=== PATIENT | female | born 1975 | race Hispanic/Latino ===

== ENCOUNTER 2020-11-20 14:18 | Emergency (ER) | payer OTHER ==
[~2020-11-20 14:18] MED LIST: ATOR40TA69 PO; DOXY100T2 PO; IBUP-2070 PO; LINA5TAB PO; LOSA50TA64 PO; MELO7.5O PO; METF-444 PO; SERT-439 PO; TRAM50TA4 PO
[2020-11-20] MEDS ORDERED: ACETAMINOPHEN EXTRA STRENGTH 500 MG TABLET ONE (14:34)
[2020-11-20] MEDS ORDERED: METOCLOPRAMIDE 10 MG/2 ML VIAL ONE (14:34)
[2020-11-20] MEDS ORDERED: DiphenhydrAMINE HCL 50 MG/ML VIAL ONE (14:34)
[2020-11-20] MEDS ORDERED: SODIUM CHLORIDE 0.9% 1000ML 1,000 ML IV ONE (14:35)
[2020-11-20 14:40] LABS: BASOPHILS % (AUTO) 0.3 % (0.0-5.0); EOSINOPHILS % (AUTO) 2.9 % (0.0-8.0); HEMATOCRIT 40.1 % (36-48); LYMPHOCYTES % (AUTO) 17.4 % (21.0-51.0); MEAN CORPUSCULAR HEMOGLOBIN 25.9 pg (27.0-33.0); MEAN CORPUSCULAR HGB CONC 32.2 g/dL (32.0-36.0); MEAN CORPUSCULAR VOLUME 80.5 fL (79-99); PLATELET COUNT (AUTO) 282 K/uL (130-400); RED BLOOD CELL COUNT(AUTO) 4.98 MIL/uL (4.00-5.50); RED CELL DISTRIBUTION WIDTH 14.9 % (11.0-15.5); WHITE BLOOD COUNT (AUTO) 9.4 K/uL (4.8-10.8)
[2020-11-20 14:55] LABS: CREATININE 0.6 mg/dL (0.5-1.5); POTASSIUM 3.8 mmol/L (3.5-5.1)
[2020-11-20 15:00] LABS: ALBUMIN 3.4 g/dL (3.5-5.0); BILIRUBIN,TOTAL 0.4 mg/dL (0.2-1.0)
[2020-11-20 15:56] LABS: APPEARANCE,URINE Clear (CLEAR); BILIRUBIN,URINE Negative (NEGATIVE); COLOR,URINE Yellow (YELLOW); GLUCOSE, URINE (UA) 500 mg/dL (NEGATIVE); KETONES,URINE 15 mg/dL (NEGATIVE); LEUKOCYTE ESTERASE ,URINE Negative (NEGATIVE); NITRATE,URINE Negative (NEGATIVE); OCCULT BLOOD,URINE Negative (NEGATIVE); PROTEIN,URINE Negative (NEGATIVE); UROBILINOGEN,URINE 0.2 mg/dL (0.2-1.0)
[2020-11-20 16:00] LABS: HCG,QUAL RESULT NEGATIVE (NEGATIVE)
[2020-11-20 16:03] LABS: AMPHET/METH SCREEN,URINE NEGATIVE (NEGATIVE); BACTERIA,URINE Rare /HPF (None Seen); BARBITURATE SCREEN, URINE NEGATIVE (NEGATIVE); BENZODIAZEPINES SCREEN,URINE NEGATIVE (NEGATIVE); CANNABINOID SCREEN,URINE NEGATIVE (NEGATIVE); COCAINE SCREEN,URINE NEGATIVE (NEGATIVE); OPIATE SCREEN,URINE NEGATIVE (NEGATIVE); PHENCYCLIDINE SCREEN,URINE NEGATIVE (NEGATIVE); RBC,URINE 0-1 /HPF (0-1); SQUAMOUS EPITHELIAL CELL,UR Few /HPF (0-2); WBC,URINE 0-1 /HPF (0-1)
== END 2020-11-20 16:23 | disposition home or self-care (01) ==
LOC: EDH 14:18
DX: R51.9 Headache, unspecified (principal); E11.9 Type 2 diabetes mellitus without complications; I10 Essential (primary) hypertension
CPT/HCPCS: 36415; 80053; 80305; 81001; 81025; 85025; 96361; 96374; 96375; 99284; J1200; J2765; J7030

== ENCOUNTER 2021-04-10 00:48 | Emergency (ER) | payer OTHER ==
[~2021-04-10] VITALS: Ht 152.4 cm; Wt 90.3 kg
[2021-04-10 01:13] VITALS: BP 160/83
[2021-04-10] MEDS ORDERED: HALOPERIDOL INJ 5 MG/ML VIAL IM SCH (01:30)
[2021-04-10] MEDS ORDERED: DiphenhydrAMINE HCL 50 MG/ML VIAL IM ONE (01:30)
[2021-04-10 02:26] VITALS: BP 147/78
== END 2021-04-10 02:57 | disposition home or self-care (01) ==
LOC: EDH 00:48
DX: R51.9 Headache, unspecified (principal); E11.9 Type 2 diabetes mellitus without complications; I10 Essential (primary) hypertension; Z79.1 Long term (current) use of non-steroidal anti-inflammatories (NSAID); Z79.84 Long term (current) use of oral hypoglycemic drugs; Z79.899 Other long term (current) drug therapy
CPT/HCPCS: 70450; 96372 ×2; 99284; J1200; J1630

== ENCOUNTER 2021-09-20 23:11 | Emergency (ER) | payer OTHER ==
[~2021-09-20] VITALS: Ht 152.4 cm; Wt 88.5 kg
[2021-09-20 23:26] VITALS: BP 138/70
[2021-09-20 23:52] LABS: BASOPHILS % (AUTO) 0.5 % (0.0-5.0); EOSINOPHILS % (AUTO) 2.7 % (0.0-8.0); HEMATOCRIT 41.1 % (36-48); LYMPHOCYTES % (AUTO) 24.6 % (21.0-51.0); MEAN CORPUSCULAR HEMOGLOBIN 25.7 pg (27.0-33.0); MEAN CORPUSCULAR HGB CONC 30.7 g/dL (32.0-36.0); MEAN CORPUSCULAR VOLUME 83.9 fL (79-99); MONOCYTES % (AUTO) 6.5 % (3.0-13.0); NEUTROPHILS % (AUTO) 65.3 % (40.0-77.0); PLATELET COUNT (AUTO) 279 K/uL (130-400); RED CELL DISTRIBUTION WIDTH 14.7 % (11.0-15.5); WHITE BLOOD COUNT (AUTO) 8.5 K/uL (4.8-10.8)
[2021-09-21] LABS: CREATININE 0.6 mg/dL (0.5-1.5); POTASSIUM 3.9 mmol/L (3.5-5.1)
[2021-09-21 01:16] LABS: PLATELET MORPHOLOGY LARGE PLTS PRESENT
== END 2021-09-21 00:40 | disposition home or self-care (01) ==
LOC: EDH 23:11
DX: R20.2 Paresthesia of skin (principal); M79.602 Pain in left arm; E10.9 Type 1 diabetes mellitus without complications
CPT/HCPCS: 36415; 80048; 84484; 85025; 93005

== ENCOUNTER 2023-02-15 15:47 | Emergency (ER) | payer BC, OTHER ==
[~2023-02-15] VITALS: Ht 160 cm; Wt 65.8 kg
[2023-02-15 16:17] LABS: BASOPHILS # (AUTO) 0.01 K/uL (0.00-0.20); BASOPHILS % (AUTO) 0.1 % (0.0-5.0); EOSINOPHILS # (AUTO) 0.02 K/uL (0.00-0.70); EOSINOPHILS % (AUTO) 0.2 % (0.0-8.0); HEMATOCRIT 42.6 % (36-48); IMMATURE GRANULOCYTE ABSOLUTE 0.04 K/uL (0-1); LYMPHOCYTES # (AUTO) 0.6 K/uL (1.0-4.8); LYMPHOCYTES % (AUTO) 5.5 % (21.0-51.0); MEAN CORPUSCULAR HEMOGLOBIN 25.5 pg (27.0-33.0); MEAN CORPUSCULAR HGB CONC 31.7 g/dL (32.0-36.0); MEAN CORPUSCULAR VOLUME 80.4 fL (79-99); MONOCYTES # (AUTO) 0.3 K/uL (0.1-1.0); MONOCYTES % (AUTO) 3.1 % (3.0-13.0); NEUTROPHILS % (AUTO) 90.7 % (40.0-77.0); PLATELET COUNT (AUTO) 289 K/uL (130-400); RED CELL DISTRIBUTION WIDTH 14.4 % (11.0-15.5); WHITE BLOOD COUNT (AUTO) 9.9 K/uL (4.8-10.8)
[2023-02-15 16:23] LABS: APPEARANCE,URINE CLOUDY (CLEAR); BILIRUBIN,URINE NEGATIVE (NEGATIVE); COLOR,URINE YELLOW (YELLOW); GLUCOSE, URINE (UA) >=1000 mg/dL (NEGATIVE); KETONES,URINE 10 mg/dL (NEGATIVE); LEUKOCYTE ESTERASE ,URINE 25 Leu/uL (NEGATIVE); NITRATE,URINE NEGATIVE (NEGATIVE); OCCULT BLOOD,URINE LARGE (NEGATIVE); PROTEIN,URINE 30 mg/dL (NEGATIVE); UROBILINOGEN,URINE 0.2 mg/dL (0.2-1.0)
[2023-02-15 16:44] LABS: ADD UA MICROSCOPIC YES
[2023-02-15 16:46] LABS: BACTERIA,URINE FEW /HPF (None Seen); MUCUS,URINE FEW LPF (None Seen); RBC,URINE 26-50 /HPF (0-1); SQUAMOUS EPITHELIAL CELL,UR MOD /HPF (0-2); UNCLASSIFIED CRYSTAL 1 /HPF (None Seen)
[2023-02-15 16:50] LABS: ALBUMIN 3.7 g/dL (3.5-5.0); BILIRUBIN,TOTAL 0.6 mg/dL (0.2-1.0); CREATININE 0.6 mg/dL (0.5-1.5); POTASSIUM 4.2 mmol/L (3.5-5.1); TOTAL PROTEIN, SERUM 7.6 g/dL (6.0-8.3)
[2023-02-15 16:52] LABS: HCG,QUALITATIVE URINE NEGATIVE (NEGATIVE)
[2023-02-15] MEDS ORDERED: 0.9%NACL 1000ML 1,000 ML IV ONE (17:00)
[2023-02-15] MEDS ORDERED: MORPHINE 4 MG SYG IM ONE (17:00)
[2023-02-15] MEDS ORDERED: ONDANSETRON 4MG INJ IVP ONE (17:00)
[2023-02-15] MEDS ORDERED: FAMO20TA8 PO (20:12)
[2023-02-15] MEDS ORDERED: CEPH500B PO (20:12)
[2023-02-15 20:30] VITALS: BP 117/62; PULSE 87; RESP 18; O2SAT 96
== END 2023-02-15 20:34 | disposition home or self-care (01) ==
LOC: EDH 15:47
DX: N39.0 Urinary tract infection, site not specified (principal); K29.70 Gastritis, unspecified, without bleeding; I10 Essential (primary) hypertension; Z79.84 Long term (current) use of oral hypoglycemic drugs; Z79.899 Other long term (current) drug therapy
CPT/HCPCS: 99284; 96374; 76705; 96361; 80053; 83690; 85025; 87088; 82010; 81001; 81025; 36415; 96372; J7030; J2405; J2270

== ENCOUNTER 2024-07-15 16:21 | Emergency (ER) | payer BC ==
[~2024-07-15] VITALS: Ht 149.9 cm; Wt 72.6 kg
[~2024-07-15 16:21] MED LIST changes: +CEPH500B PO; +FAMO20TA8 PO
[2024-07-15 17:06] LABS: HEMATOCRIT 39.7 % (36-48); MEAN CORPUSCULAR HEMOGLOBIN 26.7 pg (27.0-33.0); MEAN CORPUSCULAR HGB CONC 32.7 g/dL (32.0-36.0); MEAN CORPUSCULAR VOLUME 81.5 fL (79-99); RED BLOOD CELL COUNT(AUTO) 4.87 MIL/uL (4.00-5.50); RED CELL DISTRIBUTION WIDTH 14.4 % (11.0-15.5)
[2024-07-15 17:16] LABS: APPEARANCE,URINE CLEAR (CLEAR); BILIRUBIN,URINE NEGATIVE (NEGATIVE); COLOR,URINE LIGHT-YELLOW (YELLOW); GLUCOSE, URINE (UA) 300 mg/dL (NEGATIVE); KETONES,URINE NEGATIVE (NEGATIVE); LEUKOCYTE ESTERASE ,URINE 25 Leu/uL (NEGATIVE); NITRATE,URINE NEGATIVE (NEGATIVE); OCCULT BLOOD,URINE NEGATIVE (NEGATIVE); PH,URINE 5.5 (5.0-8.0); PROTEIN,URINE NEGATIVE (NEGATIVE); UROBILINOGEN,URINE 0.2 mg/dL (0.2-1.0)
[2024-07-15 17:25] LABS: ADD UA MICROSCOPIC YES
[2024-07-15 17:26] LABS: MUCUS,URINE RARE LPF (None Seen); RBC,URINE 0-1 /HPF (0-1); SQUAMOUS EPITHELIAL CELL,UR FEW /HPF (0-2)
[2024-07-15 18:35] LABS: CREATININE 0.5 mg/dL (0.5-1.0); POTASSIUM 3.7 mmol/L (3.5-5.1)
[2024-07-15] MEDS: ketOROlac 15MG/ML VIAL (15MG/ML) IV ONE (18:35)
--- NOTE | 2024-07-15 18:49 | ERN ---
General Chief Complaint: Abdominal Pain Stated Complaint: ABDOMINAL PAIN Time Seen by MD: 16:56 Time Seen by Midlevel: 16:56 Source: patient History of Present Illness Initial Comments Patient is a 49-year-old female presenting to the emergency department with worsening right lower quadrant abdominal pain that has been ongoing for the last five days. Denies any fever, chills, dysuria, hematuria, or any other symptoms at this time. She does report having a history of ovarian cysts but has never followed up with an OBGYN. Denies any other concerns at this time. Allergies: Coded Allergies: No Known Drug Allergies (Verified Allergy, Unknown, 03/12/17) Home Meds Active Scripts Famotidine (Famotidine) 20 Mg Tablet, 20 MG PO BID, #14 TAB Prov:JARAD CARTWRIGHT V SHOTGUN SHELL LOADING MACHINE OPERATOR 02/15/23 Cephalexin Monohydrate (Keflex) 500 Mg Cap, 500 MG PO QID for 7 Days, #28 CAP Prov:JARAD CARTWRIGHT V [employer] SHELL LOADING MACHINE OPERATOR 02/15/23 Doxycycline Hyclate (Doxycycline Hyclate) 100 Mg Tablet, 100 MG PO BID, #14 TAB Prov:REYNA POWELL MD 03/14/17 Reported Medications Sertraline HCl (Sertraline HCl) 50 Mg Tablet, 50 MG PO DAILY, TAB 03/12/17 Meloxicam (Meloxicam) 7.5 Mg/5 Ml Oral.susp, 7.5 MG PO DAILY, ML 03/12/17 Losartan Potassium (Losartan Potassium) 50 Mg Tablet, 50 MG PO DAILY, TAB 03/12/17 Atorvastatin Calcium (LIPITOR) 40 Mg Tablet, 40 MG PO DAILY, TAB 03/12/17 Linagliptin (Tradjenta) 5 Mg Tablet, 5 MG PO DAILY, TAB 03/12/17 Ibuprofen (Ibuprofen) 600 Mg Tablet, 600 MG PO Q6H PRN for PAIN, TAB 03/12/17 Tramadol Hcl (Tramadol HCl) 50 Mg Tablet, 50 MG PO [id number] PRN for PAIN LEVEL 6 TO 10, TAB 03/12/17 Metformin HCl (Metformin HCl) 500 Mg Tablet, 500 MG PO BID, TAB 03/12/17 Past Medical History Past Medical History: No Pertinent History, Hypothyroid, Ovarian Cyst Past Surgical History: Surgical History Other: THYROID SX Family History Family History: Negative Social History Social History: Negative, Other ROS Dictation CONSTITUTIONAL: Negative except for HPI HEAD/FACE: Negative except for HPI EENT: Negative except for HPI RESPIRATORY: Negative except for HPI GASTROINTESTINAL/ABDOMINAL: Negative except for HPI GENITOURINARY: Negative except for HPI MUSCULOSKELETAL: Negative except for HPI INTEGUMENTARY: Negative except for HPI NEUROLOGICAL/PSYCH: Negative except for HPI HEMATOLOGIC/LYMPHATIC: Negative except for HPI All Systems Negative, Except as noted above. 13 point review of systems assessed and all negative except for above. Physical Exam Physical Exam Dictation Vital Signs reviewed General Appearance: Alert, oriented x 3, no acute distress, well developed, nourished. Head and Face: non-traumatic. Eyes: PERRL, pink conjunctivas, eyelid no trauma, anterior chamber with arcus senilis. Ears: Pinnas intact and no signs of trauma or erythema ear canals clear and no discharge TM no erythema Nose: No discharge, no bleeding. Oropharynx: Mouth normal, tongue pink, pharynx clear,no erythema, tonsils no exudates, no abscesses noted, mucous memb shine moist Neck: Supple, non-tender, no thyromegaly, no masses, no JVD, no bruits Breast:Deferred Chest:No tenderness, no crepitus, no paradoxical movement, no retractions Lungs:Clear, well-ventilated, symmetric, no rales, no wheezing, no rhonchi, no s tridor, good breath sounds bilaterally Heart: Regular rate, regular rhythm, no murmur, no gallops Vascular: no peripheral edema, Abdomen: Soft, positive bowel sounds, nondistended, no guarding, Right lower quadrant abdominal tenderness, no rebound, no masses no hepatomegaly, no splenomegaly, no Presley's sign, no hernias. Rectal: Deferred Genital: Deferred Neurological: Normal speech, motor function intact, sensory function intact Musculoskeletal: Neck nontender, full range of motion, back nontender, full range of motion, Extremities: nontender, full range of motion Skin: Color pink, dry, no turgor, no rash, no lacerations, no abrasions, no contusions. Lymphatic: Deferred Results Laboratory and Microbiology Lab and Micro Result Laboratory Tests Test 07/15/24 16:46 07/15/24 16:56 Urine Color LIGHT-YELLOW (YELLOW) Urine Appearance CLEAR (CLEAR) Urine pH 5.5 (5.0-8.0) Urine Specific [place] 1.023 (1.001-1.031) Urine Protein NEGATIVE mg/dL (NEGATIVE) Urine Glucose (UA) 300 mg/dL (NEGATIVE) H Urine Ketones NEGATIVE mg/dL (NEGATIVE) Urine Occult Blood NEGATIVE (NEGATIVE) Urine Nitrate NEGATIVE (NEGATIVE) Urine Bilirubin NEGATIVE mg/dL (NEGATIVE) Urine Urobilinogen 0.2 mg/dL (0.2-1.0) Urine Leukocyte Esterase 25 [place]/uL (NEGATIVE) H Urine RBC 0-1 /HPF (0-1) Urine WBC 2-5 /HPF (0-1) H Urine Squamous Epithelial Cells FEW /HPF (0-2) Urine Bacteria None /HPF (None Seen) White Blood Count 10.0 K/uL (4.8-10.8) Red Blood Count 4.87 MIL/uL (4.00-5.50) Hemoglobin 13.0 g/dL (12.0-16.0) Hematocrit 39.7 % (36-48) Mean Corpuscular Volume 81.5 fL (79-99) Mean Corpuscular Hemoglobin 26.7 pg (27.0-33.0) L Mean Corpuscular Hemoglobin Concent 32.7 g/dL (32.0-36.0) Red Cell Distribution Width 14.4 % (11.0-15.5) Platelet Count 269 K/uL (130-400) Mean Platelet Volume 12.1 fL (7.5-10.5) H Nucleated Red Blood Cells 0.0 % (0.0-0.19) Sodium Level 140 mmol/L (136-145) Potassium Level 3.7 mmol/L (3.5-5.1) Chloride Level 104 mmol/L (101-111) Carbon Dioxide Level 27 mmol/L (21-32) Blood Urea Nitrogen 18 mg/dL (7-18) Creatinine 0.5 mg/dL (0.5-1.0) Glomerular Filtration Rate Calc 115 mL/min (>90) Random Glucose 137 mg/dL (70-105) H Total Calcium 9.0 mg/dL (8.5-10.1) REASON: RLQ abd pain r/o appendicitis ORDERING PHYSICIAN: XIMENA MARTELL PROCEDURE: ABD PEL W - CT ABDOMEN/PELVIS W/CONTRAST CT ABDOMEN/PELVIS W/CONTRAST CLINICAL HISTORY: RLQ abd pain appendicitis COMPARISON: 01/10/2024 TECHNIQUE: Sequential axial images of abdomen and pelvis with 100 mL of Omnipaque 350 IV contrast with sagittal and coronal reconstructions. CT was performed with one or more of the following dose reduction techniques: automated exposure control, adjustment of the mA and/or kV according to patient size, or use of iterative reconstruction technique. FINDINGS: Lung bases are clear. The liver spleen gallbladder pancreas and adrenal glands kidneys and bladder are unremarkable. There is no identified bowel obstruction. There is no bulky abdominal or retroperitoneal lymphadenopathy. The appendix is normal. Note is made of a large right ovarian cyst demonstrates interval increase since the prior examination with a maximum dimension of 8.6 cm. There is no free air or free fluid. The bony structures are unremarkable. IMPRESSION: Normal appendix. 8.6 cm maximum dimension right ovarian cyst recommended ultrasound correlation. REASON: rlq pain, r/o ovarian torsion ORDERING PHYSICIAN: XIMENA MARTELL PROCEDURE: PELVCOMP - US PELVIC NON-OB COMP US PELVIC NON-OB COMP HISTORY: rlq pain, ovarian torsion COMPARISON: 01/10/2024 FINDINGS: The uterus measures 10.8 cm length and there is 1.2 cm thick endometrium. The right ovary is unremarkable in size and echogenicity and vascularity. The left ovary is not identified. Note is made of a 10 x 5.1 x 7 cm right paraovarian cyst that appears simple with no internal echoes or septations. IMPRESSION: Interval increase in size of previously identified right paraovarian cyst to maximum dimension of 10 cm with no identified right ovarian torsion. The left ovary is not identified. Labs Reviewed?: Yes MDM MDM: Patient is a 49-year-old female presenting to the emergency department with worsening right lower quadrant abdominal pain that has been ongoing for the last five days. Denies any fever, chills, dysuria, hematuria, or any other symptoms at this time. She does report having a history of ovarian cysts but has never followed up with an OBGYN. Denies any other concerns at this time. CBC showed no leukocytosis, no anemia, chemistry showed no electrolyte imbalance, normal renal function, urinalysis slight leukocyte esterase. No nitrites. CT abdomen showed normal appendix, right ovarian cyst, ultrasound revealed the right ovarian cyst with no torsion. Patient instructed to follow up with OBGYN as soon as possible. Patient currently in no acute discomfort. Nontoxic appearance. Will be discharged to follow up with PCP. An OBGYN Differential diagnosis: Ovarian cyst, appendicitis, electrolyte imbalance, constipation, UTI There are no social concerns with this patient. Prescription drug management Medical management and examination interpretation discussions were had by me with other qualified healthcare professionals as indicated for the patient's care. ED Course Orders Procedure Category Date Status Time Urinalysis Profile LAB 07/15/24 Complete 16:45 Cbc Without LAB 07/15/24 Complete Differential 16:45 Basic Metabolic Panel LAB 07/15/24 Complete 18:00 Ct Abdomen/Pelvis CT 07/15/24 Resulted W/Contrast 18:00 Ketorolac PHA 07/15/24 Complete Tromethamine 15mg/Ml 18:30 Us Pelvic Non-Ob Comp US 07/15/24 Resulted 18:00 Iohexol (Omnipaque) PHA 07/15/24 Complete 19:23 Current Medications Medications (Trade) Dose Ordered Sig/Meagan Route PRN Reason Start Time Stop Time Status Last Admin Dose Admin Iohexol (Omnipaque) 35,000 mg STK-MED ONCE IV 07/15/24 19:23 07/15/24 19:23 DC Ketorolac Tromethamine (toRADol) 15 mg ONCE ONCE IV 07/15/24 18:30 07/15/24 18:31 DC 07/15/24 18:35 Vital Signs Date Time Temp Pulse Resp B/P (MAP) Pulse Ox O2 Delivery O2 Flow Rate FiO2 07/15/24 20:04 98.2 70 18 136/73 99 Room Air* 0 21 07/15/24 18:03 98.1 70 20 129/73 100 Room Air* 0 21 07/15/24 16:58 98.2 72 18 118/68 100 Room Air* 0 21 07/15/24 16:39 98.1 71 16 125/68 Room Air 0 DX & DISP Disposition: Discharge Departure Impression: Primary Impression: Right ovarian cyst Condition: Stable Additional Instructions: Please follow up with your OBGYN as soon as possible. Please return to ER if symptoms worsen. FOLLOW-UP WITH PRIMARY CARE PROVIDER IN 1 TO 2 DAYS. TAKE MEDICATIONS DIRECTED HERE IN THE EMERGENCY ROOM. OKAY TO CONTINUE HOME MEDICATIONS UNLESS OTHERWISE DISCUSSED DURING YOUR VISIT IN THE EMERGENCY ROOM TODAY. RETURN TO YOUR NEAREST EMERGENCY ROOM IF SYMPTOMS WORSEN OR IF THERE IS NO IMPROVEMENT. CALL 911 IF YOU NEED IMMEDIATE ASSISTANCE. TAKE TYLENOL OR MOTRIN [id number] NEEDED AND IF NO CONTRAINDICATIONS ARE PRESENT. INCREASE ORAL HYDRATION. A WOUND CULTURE OR URINE CULTURE WAS ORDERED HERE IN THE EMERGENCY ROOM DEPARTMENT PLEASE FOLLOW-UP WITH PRIMARY CARE PROVIDER AND ADVISE THEM TO GET REPEAT PORTS FROM OUR FACILITY. IF YOU HAD ANY DAMON WRAP/SPLINTS THAT WERE APPLIED HERE, PLEASE DO NOT REMOVE THEM UNTIL YOU SEE YOUR PRIMARY CARE OR SPECIALTY. Referrals: TERENCE LOZOYA MD (PCP) Time of Disposition: 21:17 I have reviewed the case, and I agree with, Diagnosis and Plan XIMENA MARTELL Jul 15, 2024 18:49 DESI BOWERS Jul 15, 2024 21:17
--- NOTE | 2024-07-15 18:57 | HMCIMG ---
US PELVIC NON-OB COMP HISTORY: rlq pain, ovarian torsion COMPARISON: 01/10/2024 FINDINGS: The uterus measures 10.8 cm length and there is 1.2 cm thick endometrium. The right ovary is unremarkable in size and echogenicity and vascularity. The left ovary is not identified. Note is made of a 10 x 5.1 x 7 cm right paraovarian cyst that appears simple with no internal echoes or septations. IMPRESSION: Interval increase in size of previously identified right paraovarian cyst to maximum dimension of 10 cm with no identified right ovarian torsion. The left ovary is not identified.
[2024-07-15] MEDS ORDERED: IOHEXOL 350 MG/ML 100ML INFUS..BTL IV ONE (19:23)
--- NOTE | 2024-07-15 21:00 | HMCIMG ---
CT ABDOMEN/PELVIS W/CONTRAST CLINICAL HISTORY: RLQ abd pain appendicitis COMPARISON: 01/10/2024 TECHNIQUE: Sequential axial images of abdomen and pelvis with 100 mL of Omnipaque 350 IV contrast with sagittal and coronal reconstructions. CT was performed with one or more of the following dose reduction techniques: automated exposure control, adjustment of the mA and/or kV according to patient size, or use of iterative reconstruction technique. FINDINGS: Lung bases are clear. The liver spleen gallbladder pancreas and adrenal glands kidneys and bladder are unremarkable. There is no identified bowel obstruction. There is no bulky abdominal or retroperitoneal lymphadenopathy. The appendix is normal. Note is made of a large right ovarian cyst demonstrates interval increase since the prior examination with a maximum dimension of 8.6 cm. There is no free air or free fluid. The bony structures are unremarkable. IMPRESSION: Normal appendix. 8.6 cm maximum dimension right ovarian cyst recommended ultrasound correlation.
[2024-07-15 21:19] VITALS: BP 137/77; PULSE 72; RESP 18; TEMP 98.3; O2SAT 99
== END 2024-07-15 21:27 | disposition home or self-care (01) ==
LOC: EDH 16:21
DX: N83.201 Unspecified ovarian cyst, right side (principal); Z79.84 Long term (current) use of oral hypoglycemic drugs; Z79.899 Other long term (current) drug therapy; Z98.890 Other specified postprocedural states
CPT/HCPCS: 99285; 74177; 96374; 76856; 80048; 85027; 81001; 36415; J1885; Q9967

== ENCOUNTER 2025-02-11 19:29 | Emergency (ER) | payer OTHER ==
[~2025-02-11] VITALS: Ht 137.2 cm; Wt 65.3 kg
[2025-02-11 19:51] LABS: IMMATURE GRANULOCYTE ABSOLUTE 0.03 K/uL (0-1); NUCLEATED RED BLOOD CELLS 0.0 % (0.0-0.19); PLATELET COUNT (AUTO) 277 K/uL (130-400); RED BLOOD CELL COUNT(AUTO) 4.94 MIL/uL (4.00-5.50); RED CELL DISTRIBUTION WIDTH 14.6 % (11.0-15.5); WHITE BLOOD COUNT (AUTO) 7.9 K/uL (4.8-10.8)
[2025-02-11] MEDS: 0.9%NACL 1000ML 1,000 ML IV ONE (19:58)
[2025-02-11 20:07] LABS: CREATININE 0.5 mg/dL (0.5-1.0); GLOMERULAR FILTR. RATE CALC 115.0 mL/min (>90); GLUCOSE,RANDOM 125.0 mg/dL (70-105); SODIUM SERUM 138.0 mmol/L (136-145); UREA NITROGEN, BLOOD 11.0 mg/dL (7-18)
[2025-02-11 20:12] LABS: ADD UA MICROSCOPIC YES; APPEARANCE,URINE CLOUDY (CLEAR); GLUCOSE, URINE (UA) NEGATIVE (NEGATIVE); LEUKOCYTE ESTERASE ,URINE NEGATIVE Leu/uL (NEGATIVE); NITRATE,URINE NEGATIVE (NEGATIVE); OCCULT BLOOD,URINE NEGATIVE (NEGATIVE)
[2025-02-11 20:13] LABS: CREATINE KINASE, TOTAL 41.0 U/L (21-232)
[2025-02-11 20:14] LABS: SQUAMOUS EPITHELIAL CELL,UR FEW /HPF (0-2)
--- NOTE | 2025-02-11 20:14 | ERN ---
ED Note History of Present Illness Stated Complaint: C/O NUMBNESS TO LEFT ARM AND HAND W/CP THIS AM Chief Complaint: Numbness Time Seen by MD: 19:34 Time Seen by Midlevel: 19:34 Dictation: The patient is a 49-year-old female with a history of diabetes, hypothyroidism who presents to the emergency department with complaints of chest pain, left arm pain, left hand numbness onset 3:00 a.m.. Patient reports that the chest pain has subsided. And it lasted on morning. Patient denies any neck trauma, arm ar m trauma. Patient reports that she has had this episode in the past. Patient was seen here for the paresthesia to the left arm some years ago. Allergies: Coded Allergies: No Known Drug Allergies (Verified Allergy, Unknown, 03/12/17) Home Meds Active Scripts Famotidine (Famotidine) 20 Mg Tablet, 20 MG PO BID, #14 TAB Prov:JARAD CARTWRIGHT V COMMUNITY DEVELOPMENT WORKER 02/15/23 Cephalexin Monohydrate (Keflex) 500 Mg Cap, 500 MG PO QID for 7 Days, #28 CAP Prov:JARAD CARTWRIGHT V COMM[employer] DEVELOPMENT WORKER 02/15/23 Doxycycline Hyclate (Doxycycline Hyclate) 100 Mg Tablet, 100 MG PO BID, #14 TAB Prov:REYNA POWELL MD 03/14/17 Reported Medications Sertraline HCl (Sertraline HCl) 50 Mg Tablet, 50 MG PO DAILY, TAB 03/12/17 Meloxicam (Meloxicam) 7.5 Mg/5 Ml Oral.susp, 7.5 MG PO DAILY, ML 03/12/17 Losartan Potassium (Losartan Potassium) 50 Mg Tablet, 50 MG PO DAILY, TAB 03/12/17 Atorvastatin Calcium (LIPITOR) 40 Mg Tablet, 40 MG PO DAILY, TAB 03/12/17 Linagliptin (Tradjenta) 5 Mg Tablet, 5 MG PO DAILY, TAB 03/12/17 Ibuprofen (Ibuprofen) 600 Mg Tablet, 600 MG PO Q6H PRN for PAIN, TAB 03/12/17 Tramadol Hcl (Tramadol HCl) 50 Mg Tablet, 50 MG PO [id number] PRN for PAIN LEVEL 6 TO 10, TAB 03/12/17 Metformin HCl (Metformin HCl) 500 Mg Tablet, 500 MG PO BID, TAB 03/12/17 Past Medical History Past Medical History: Diabetes-Type II, Hypothyroid Surgical History: Other, Surgical History Other: THYROID SX Family History: Negative Social History: Negative, Other LMP: Jan 16, 2025 RN Note Reviewed/Agreed w/PFSH: Yes Review of System Dictation Constitutional: Negative for fever,chills, and weight loss Eyes: Negative for injury, pain,redness, and discharge ENT: Negative for injury,pain or swelling Cardiovascular: Negative for palpitations, and edema positive for chest pain Respiratory: Negative for shortness of breath, cough, and wheezing Abdomen/GI: Negative for abdominal pain, nausea, vomiting, diarrhea, and constipation Back: Negative for injury and pain : Negative for injury, bleeding and discharge MS/Extremity: Negative for injury and deformity positive for left arm pain Skin: Negative for rash, and discoloration Neuro: Negative for headache, weakness, numbness, tingling, and seizure positive for left hand numbness Psych: Negative for suicide ideation, homicidal ideation, and hallucinations Initial Vital Sign VS Vital Signs Date Time Temp Pulse Resp B/P (MAP) Pulse Ox O2 Delivery O2 Flow Rate FiO2 02/11/25 19:31 97.5 78 20 147/82 97 Room Air 02/11/25 19:47 0 21 Physical Exam Dictation Vital Signs reviewed General Appearance: Alert, oriented x 3, no acute distress, well developed, nourished. Head and Face: non-traumatic. Eyes: PERRL, pink conjunctivas, eyelid no trauma, anterior chamber with arcus senilis. Ears: Pinnas intact and no signs of trauma or erythema ear canals clear and no discharge TM no erythema Nose: No discharge, no bleeding. Oropharynx: Mouth normal, tongue pink. pharynx clear,no erythema, tonsils no exudates, no abscesses noted, mucous membrane moist Neck: Supple, non-tender, no thyromegaly, no masses, no JVD, no bruits Breast:Deferred Chest:No tenderness, no crepitus, no paradoxical movement, no retractions Lungs:Clear, well-ventilated, symmetric, no rales, no wheezing, no rhonchi, no stridor, good breath sounds bilaterally Heart: Regular rate, regular rhythm, no murmur, no gallops Vascular: no peripheral edema, Abdomen: Soft, positive bowel sounds, nondistended, no guarding, nontender, no rebound, no masses no hepatomegaly, no splenomegaly, no Presley's sign, no hernias. Rectal: Deferred Genital: Deferred Neurological: Normal speech, motor function intact, sensory function intact Musculoskeletal: Neck nontender, full range of motion, back nontender, full range of motion, Extremities: nontender, full range of motion Skin: Color pink, dry, no turgor, no rash, no lacerations, no abrasions, no contusions. Lymphatic: Deferred Results (Laboratory/Radiology) Laboratory/Radiology Laboratory Tests Test 02/11/25 19:43 02/11/25 20:00 02/11/25 20:35 White Blood Count 7.9 K/uL (4.8-10.8) Red Blood Count 4.94 MIL/uL (4.00-5.50) Hemoglobin 13.0 g/dL (12.0-16.0) Hematocrit 40.7 % (36-48) Mean Corpuscular Volume 82.4 fL (79-99) Mean Corpuscular Hemoglobin 26.3 pg (27.0-33.0) L Mean Corpuscular Hemoglobin Concent 31.9 g/dL (32.0-36.0) L Red Cell Distribution Width 14.6 % (11.0-15.5) Platelet Count 277 K/uL (130-400) Mean Platelet Volume 11.4 fL (7.5-10.5) H Immature Granulocyte % (Auto) 0.4 % (0-1) Neutrophils (%) (Auto) 65.0 % (40.0-77.0) Lymphocytes (%) (Auto) 25.7 % (21.0-51.0) Monocytes (%) (Auto) 5.7 % (3.0-13.0) Eosinophils (%) (Auto) 2.8 % (0.0-8.0) Basophils (%) (Auto) 0.4 % (0.0-5.0) Neutrophils # (Auto) 5.1 K/uL (1.8-7.7) Lymphocytes # (Auto) 2.0 K/uL (1.0-4.8) Monocytes # (Auto) 0.5 K/uL (0.1-1.0) Eosinophils # (Auto) 0.22 K/uL (0.00-0.70) Basophils # (Auto) 0.03 K/uL (0.00-0.20) Absolute Immature Granulocyte (auto 0.03 K/uL (0-1) Nucleated Red Blood Cells 0.0 % (0.0-0.19) Sodium Level 138 mmol/L (136-145) Potassium Level 3.9 mmol/L (3.5-5.1) Chloride Level 105 mmol/L (101-111) Carbon Dioxide Level 29 mmol/L (21-32) Blood Urea Nitrogen 11 mg/dL (7-18) Creatinine 0.5 mg/dL (0.5-1.0) Glomerular Filtration Rate Calc 115 mL/min (>90) Random Glucose 125 mg/dL (70-105) H Total Calcium 8.9 mg/dL (8.5-10.1) Magnesium Level 2.00 mg/dL (1.80-2.40) Total Creatine Kinase 41 U/L (21-232) Troponin I High Sensitivity 5 ng/L (4-50) 4 ng/L (4-50) Urine Color YELLOW (YELLOW) Urine Appearance CLOUDY (CLEAR) H Urine pH 5.5 (5.0-8.0) Urine Specific [place] 1.029 (1.001-1.031) Urine Protein NEGATIVE mg/dL (NEGATIVE) Urine Glucose (UA) NEGATIVE mg/dL (NEGATIVE) Urine Ketones NEGATIVE mg/dL (NEGATIVE) Urine Occult Blood NEGATIVE (NEGATIVE) Urine Nitrate NEGATIVE (NEGATIVE) Urine Bilirubin NEGATIVE mg/dL (NEGATIVE) Urine Urobilinogen 0.2 mg/dL (0.2-1.0) Urine Leukocyte Esterase NEGATIVE [place]/uL Urine RBC 2-5 /HPF (0-1) H Urine WBC 2-5 /HPF (0-1) H Urine Squamous Epithelial Cells FEW /HPF (0-2) Urine Bacteria RARE /HPF (None Seen) Urine HCG, Qualitative NEGATIVE (NEGATIVE) REASON: cp ORDERING PHYSICIAN: DESI BOWERS PROCEDURE: CXR1VW - CHEST 1VW EXAM: CR Chest, 1 View. CLINICAL HISTORY: cp COMPARISON: X-ray chest 03/11/2017 FINDINGS: LUNGS: There is no mass, infiltrate, or acute pulmonary abnormality. PLEURAL SPACES: No pleural effusion or pneumothorax. MEDIASTINUM: The cardiomediastinal silhouette is within normal limits. BONES: No aggressive appearing osseous lesion seen. IMPRESSION: 1. No acute cardiopulmonary findings. /[facility] Labs Reviewed?: Yes EKG: (+) rhythm (Sinus rhythm) EKG Comment: Date:02/11/2025 Time:193 Ventricular rate:74 MI interval:155 QRS duration:99 QT/QTc:408/454 EKG interpretation: Sinus rhythm Reviewed by ED Attending no STEMI ED Course ED Course Orders Procedure Category Date Status Time Cbc With Differential LAB 02/11/25 Complete 19:41 Chest 1vw RAD 02/11/25 Resulted 19:41 12 Lead Ekg Tracing- EKG 02/11/25 Logged Technical 19:41 Magnesium LAB 02/11/25 Complete 19:41 Creatine Kinase, Total LAB 02/11/25 Complete 19:41 Troponin I High LAB 02/11/25 Complete Sensitivity 19:41 Urinalysis Profile LAB 02/11/25 Complete 19:41 Basic Metabolic Panel LAB 02/11/25 Complete 19:41 0.9%Nacl 1000ml (Ns PHA 02/11/25 Complete 1000ml) 20:00 ,Urine Test LAB 02/11/25 Complete 19:50 Troponin I High LAB 02/11/25 Complete Sensitivity 20:26 Current Medications Medications (Trade) Dose Ordered Sig/Meagan Route PRN Reason Start Time Stop Time Status Last Admin Dose Admin Sodium Chloride 1,000 ml @ 0 mls/hr ONCE ONCE IV 02/11/25 20:00 02/11/25 20:01 DC 02/11/25 19:58 Vital Signs Date Time Temp Pulse Resp B/P (MAP) Pulse Ox O2 Delivery O2 Flow Rate FiO2 02/11/25 21:18 98.2 70 14 142/88 100 Room Air* 0 21 02/11/25 19:47 97.9 72 14 139/75 100 Room Air* 0 21 02/11/25 19:31 97.5 78 20 147/82 97 Room Air HEART Score Response (Comments) Value History: Low suspicion (0) 0 EKG: Normal 0 Age: 45-65yrs (+1) 1 Risk Factors: 1-2 risk factors (+1) 1 Initial Troponin: Normal limit (0) 0 Total 2 Medical Decision Making MDM The patient is a 49-year-old female with a history of diabetes, hypothyroidism who presents to the emergency department with complaints of chest pain, left arm pain, left hand numbness onset 3:00 a.m.. Patient reports that the chest pain has subsided. And it lasted on morning. Patient denies any neck trauma, arm arm trauma. Patient reports that she has had this episode in the past. Patient was seen here for the paresthesia to the left arm some years ago. CBC showed no leukocytosis, no anemia, chemistry showed no electrolyte imbalance, normal renal function, negative troponin x2. X-ray showed no acute pathology. EKG was normal sinus rhythm. Patient complaining of no more chest pain. Chest pain presented this morning but spontaneously went away. Patient also associated the chest pain with left arm pain and numbness to the hand. Otherwise patient is neurologically intact. No facial droop, upper extremities equal in strength, lower extremities equal in strength. Patient with no numbness to left arm. Patient was seen here in 2021 with similar complaint. Patient with no history of trauma to the left arm. Low risk cardiac score On physical exam patient is in no acute distress, nontoxic appearance. Patient instructed to follow up with PCP. Patient agrees with discharge planning Differential diagnosis: ACS, anxiety, electrolyte imbalance, dehydration, pneumonia Need for hospitalization: Patient does not meet criteria for hospitalization. There are no social concerns with this patient. DX & DISP Disposition: Discharge Departure Impression: Primary Impression: Chest pain Additional Impression: Paresthesia and pain of left extremity Condition: Stable Additional Instructions: Please follow up with your primary doctor in 1-2 days. If anything worsens please return to ER. FOLLOW-UP WITH PRIMARY CARE PROVIDER IN 1 TO 2 DAYS. TAKE MEDICATIONS DIRECTED HERE IN THE EMERGENCY ROOM. OKAY TO CONTINUE HOME MEDICATIONS UNLESS OTHERWISE DISCUSSED DURING YOUR VISIT IN THE EMERGENCY ROOM TODAY. RETURN TO YOUR NEAREST EMERGENCY ROOM IF SYMPTOMS WORSEN OR IF THERE IS NO IMPROVEMENT. CALL 911 IF YOU NEED IMMEDIATE ASSISTANCE. TAKE TYLENOL [id number] NEEDED AND IF NO CONTRAINDICATIONS ARE PRESENT. INCREASE ORAL HYDRATION. A WOUND CULTURE OR URINE CULTURE WAS ORDERED HERE IN THE EMERGENCY ROOM DEPARTMENT PLEASE FOLLOW-UP WITH PRIMARY CARE PROVIDER AND ADVISE THEM TO GET REPEAT PORTS FROM OUR FACILITY. IF YOU HAD ANY DAMON WRAP/SPLINTS THAT WERE APPLIED HERE, PLEASE DO NOT REMOVE THEM UNTIL YOU SEE YOUR PRIMARY CARE OR SPECIALTY. Referrals: TERENCE LOZOYA MD (PCP) Time of Disposition: 21:33 I have reviewed the case, and I agree with, Diagnosis and Plan DESI BOWERS [facility] Feb 11, 2025 20:14
--- NOTE | 2025-02-11 20:32 | HMCIMG ---
EXAM: CR Chest, 1 View. CLINICAL HISTORY: cp COMPARISON: X-ray chest 03/11/2017 FINDINGS: LUNGS: There is no mass, infiltrate, or acute pulmonary abnormality. PLEURAL SPACES: No pleural effusion or pneumothorax. MEDIASTINUM: The cardiomediastinal silhouette is within normal limits. BONES: No aggressive appearing osseous lesion seen. IMPRESSION: 1. No acute cardiopulmonary findings. /[place]
[2025-02-11 21:18] VITALS: BP 142/88; PULSE 70; RESP 14; TEMP 98.2; O2SAT 100
--- NOTE | 2025-02-12 05:34 | EKG ---
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
== END 2025-02-11 21:47 | disposition home or self-care (01) ==
LOC: EDH 19:29
DX: R07.89 Other chest pain (principal); M79.672 Pain in left foot; R20.2 Paresthesia of skin; E03.9 Hypothyroidism, unspecified; E11.9 Type 2 diabetes mellitus without complications; Z79.84 Long term (current) use of oral hypoglycemic drugs; Z79.899 Other long term (current) drug therapy; Z98.890 Other specified postprocedural states
CPT/HCPCS: 99285; 96360; 71045; 82550; 83735; 84484 ×2; 80048; 85025; 81001; 81025; 36415; 93005; J7030

== ENCOUNTER 2025-04-11 17:17 | Emergency (ER) | payer OTHER ==
[~2025-04-11] VITALS: Ht 162.6 cm; Wt 64.9 kg
[~2025-04-11 17:17] MED LIST changes: +IBUP-1492 PO; -IBUP-2070 PO
--- NOTE | 2025-04-11 17:19 | NUR ---
UA CUP PROVIDED
[2025-04-11 17:56] LABS: IMMATURE GRANULOCYTE ABSOLUTE 0.05 K/uL (0-1); NUCLEATED RED BLOOD CELLS 0.0 % (0.0-0.19); PLATELET COUNT (AUTO) 287 K/uL (130-400); RED BLOOD CELL COUNT(AUTO) 4.51 MIL/uL (4.00-5.50); RED CELL DISTRIBUTION WIDTH 14.9 % (11.0-15.5); WHITE BLOOD COUNT (AUTO) 9.3 K/uL (4.8-10.8)
[2025-04-11 18:00] LABS: APPEARANCE,URINE CLEAR (CLEAR); GLUCOSE, URINE (UA) 70 mg/dL (NEGATIVE); LEUKOCYTE ESTERASE ,URINE NEGATIVE Leu/uL (NEGATIVE); NITRATE,URINE NEGATIVE (NEGATIVE); OCCULT BLOOD,URINE NEGATIVE (NEGATIVE)
--- NOTE | 2025-04-11 18:00 | NUR ---
COVID, FLU AND STREP SWABS COLLECTED AND SENT
[2025-04-11 18:01] LABS: ADD UA MICROSCOPIC YES
[2025-04-11 18:06] LABS: CREATININE 0.6 mg/dL (0.5-1.0); GLOMERULAR FILTR. RATE CALC 110.0 mL/min (>90); GLUCOSE,RANDOM 140.0 mg/dL (70-105); SODIUM SERUM 139.0 mmol/L (136-145); UREA NITROGEN, BLOOD 17.0 mg/dL (7-18)
[2025-04-11 18:07] LABS: SQUAMOUS EPITHELIAL CELL,UR MOD /HPF (0-2)
[2025-04-11 18:11] LABS: CREATINE KINASE, TOTAL 38.0 U/L (21-232)
[2025-04-11 18:29] LABS: RAPID GROUP A STREP negative (NEGATIVE)
[2025-04-11 18:35] LABS: COVID19 (SARS ANTIGEN RAPID) PRESUMPTIVE NEGATIVE (NEGATIVE); INFLUENZA TYPE A Negative For Type A (NEGATIVE); INFLUENZA TYPE B Negative For Type B (NEGATIVE)
[2025-04-11 19:08] VITALS: TEMP 97.9
[2025-04-11] MEDS: MAGNESIUM OXIDE 400 MG TABLET PO ONE (19:08)
--- NOTE | 2025-04-11 19:13 | ERN ---
ED Note History of Present Illness Stated Complaint: BODYACHES Chief Complaint: Generalized Body Aches Time Seen by MD: 17:22 Time Seen by Midlevel: 17:22 Dictation: The patient is a 49-year-old female with history of hypothyroidism, diabetes who presents to the emergency department with generalized body aches onset five days ago. Patient otherwise denies any fevers, denies any cough, denies sore throat or ear pain, denies any abdominal pain or chest pain, denies any nausea or vomiting but reports yesterday she had an episode of nonbloody diarrhea. Patient denies any other complaints. Allergies: Coded Allergies: No Known Drug Allergies (Verified Allergy, Unknown, 03/12/17) Home Meds Active Scripts Famotidine (Famotidine) 20 Mg Tablet, 20 MG PO BID, #14 TAB Prov:JARAD CARTWRIGHT V FIBERGLASS TUBE MOLDER 02/15/23 Cephalexin Monohydrate (Keflex) 500 Mg Cap, 500 MG PO QID for 7 Days, #28 CAP Prov:JARAD CARTWRIGHT V FIBERGLASS TUBE MOLDER 02/15/23 Doxycycline Hyclate (Doxycycline Hyclate) 100 Mg Tablet, 100 MG PO BID, #14 TAB Prov:REYNA POWELL MD 03/14/17 Reported Medications Sertraline HCl (Sertraline HCl) 50 Mg Tablet, 50 MG PO DAILY, TAB 03/12/17 Meloxicam (Meloxicam) 7.5 Mg/5 Ml Oral.susp, 7.5 MG PO DAILY, ML 03/12/17 Losartan Potassium (Losartan Potassium) 50 Mg Tablet, 50 MG PO DAILY, TAB 03/12/17 Atorvastatin Calcium (LIPITOR) 40 Mg Tablet, 40 MG PO DAILY, TAB 03/12/17 Linagliptin (Tradjenta) 5 Mg Tablet, 5 MG PO DAILY, TAB 03/12/17 Ibuprofen (Ibuprofen) 600 Mg Tablet, 600 MG PO Q6H PRN for PAIN, TAB 03/12/17 Tramadol Hcl (Tramadol HCl) 50 Mg Tablet, 50 MG PO [id number] PRN for PAIN LEVEL 6 TO 10, TAB 03/12/17 Metformin HCl (Metformin HCl) 500 Mg Tablet, 500 MG PO BID, TAB 03/12/17 Past Medical History Past Medical History: Diabetes-Type II, Hypothyroid Surgical History: Other, Surgical History Other: THYROID SX Family History: Negative Social History: Negative, Other RN Note Reviewed/Agreed w/PFSH: Yes Review of System Dictation Constitutional: Negative for fever,chills, and weight loss positive for body aches Eyes: Negative for injury, pain,redness, and discharge ENT: Negative for injury,pain or swelling Cardiovascular: Negative for chest pain, palpitations, and edema Respiratory: Negative for shortness of breath, cough, and wheezing, Abdomen/GI: Negative for abdominal pain, nausea, vomiting, and constipation positive for diarrhea Back: Negative for injury and pain : Negative for injury, bleeding and discharge MS/Extremity: Negative for injury and deformity Skin: Negative for rash, and discoloration Neuro: Negative for headache, weakness, numbness, tingling, and seizure Psych: Negative for suicide ideation, homicidal ideation, and hallucinations Initial Vital Sign VS Vital Signs Date Time Temp Pulse Resp B/P (MAP) Pulse Ox O2 Delivery O2 Flow Rate FiO2 04/11/25 17:19 97.9 82 18 151/85 100 Room Air Physical Exam Dictation Vital Signs reviewed General Appearance: Alert, oriented x 3, no acute distress, well developed, nourished. Head and Face: non-traumatic. Eyes: PERRL, pink conjunctivas, eyelid no trauma, anterior chamber with arcus senilis. Ears: Pinnas intact and no signs of trauma or erythema ear canals clear and no discharge TM no erythema Nose: No discharge, no bleeding. Oropharynx: Mouth normal, tongue pink. pharynx clear,no erythema, tonsils no exudates, no abscesses noted, mucous membrane moist Neck: Supple, non-tender, no thyromegaly, no masses, no JVD, no bruits Breast:Deferred Chest:No tenderness, no crepitus, no paradoxical movement, no retractions Lungs:Clear, well-ventilated, symmetric, no rales, no wheezing, no rhonchi, no stridor, good breath sounds bilaterally Heart: Regular rate, regular rhythm, no murmur, no gallops Vascular: no peripheral edema, Abdomen: Soft, positive bowel sounds, nondistended, no guarding, nontender, no rebound, no masses no hepatomegaly, no splenomegaly, no Presley's sign, no hernias. Rectal: Deferred Genital: Deferred Neurological: Normal speech, motor function intact, sensory function intact Musculoskeletal: Neck nontender, full range of motion, back nontender, full rang e of motion, Extremities: nontender, full range of motion Skin: Color pink, dry, no turgor, no rash, no lacerations, no abrasions, no contusions. Lymphatic: Deferred Results (Laboratory/Radiology) Laboratory/Radiology Laboratory Tests Test 04/11/25 17:25 04/11/25 17:40 04/11/25 18:00 Urine Color LIGHT-YELLOW (YELLOW) Urine Appearance CLEAR (CLEAR) Urine pH 5.0 (5.0-8.0) Urine Specific [place] 1.025 (1.001-1.031) Urine Protein NEGATIVE mg/dL (NEGATIVE) Urine Glucose (UA) 70 mg/dL (NEGATIVE) H Urine Ketones 10 mg/dL (NEGATIVE) H Urine Occult Blood NEGATIVE (NEGATIVE) Urine Nitrate NEGATIVE (NEGATIVE) Urine Bilirubin NEGATIVE mg/dL (NEGATIVE) Urine Urobilinogen 0.2 mg/dL (0.2-1.0) Urine Leukocyte Esterase NEGATIVE [place]/uL Urine RBC 0-1 /HPF (0-1) Urine WBC 0-1 /HPF (0-1) Urine Squamous Epithelial Cells MOD /HPF (0-2) Urine Bacteria None /HPF (None Seen) White Blood Count 9.3 K/uL (4.8-10.8) Red Blood Count 4.51 MIL/uL (4.00-5.50) Hemoglobin 12.1 g/dL (12.0-16.0) Hematocrit 37.2 % (36-48) Mean Corpuscular Volume 82.5 fL (79-99) Mean Corpuscular Hemoglobin 26.8 pg (27.0-33.0) L Mean Corpuscular Hemoglobin Concent 32.5 g/dL (32.0-36.0) Red Cell Distribution Width 14.9 % (11.0-15.5) Platelet Count 287 K/uL (130-400) Mean Platelet Volume 11.9 fL (7.5-10.5) H Immature Granulocyte % (Auto) 0.5 % (0-1) Neutrophils (%) (Auto) 68.6 % (40.0-77.0) Lymphocytes (%) (Auto) 23.4 % (21.0-51.0) Monocytes (%) (Auto) 5.4 % (3.0-13.0) Eosinophils (%) (Auto) 1.7 % (0.0-8.0) Basophils (%) (Auto) 0.4 % (0.0-5.0) Neutrophils # (Auto) 6.4 K/uL (1.8-7.7) Lymphocytes # (Auto) 2.2 K/uL (1.0-4.8) Monocytes # (Auto) 0.5 K/uL (0.1-1.0) Eosinophils # (Auto) 0.16 K/uL (0.00-0.70) Basophils # (Auto) 0.04 K/uL (0.00-0.20) Absolute Immature Granulocyte (auto 0.05 K/uL (0-1) Nucleated Red Blood Cells 0.0 % (0.0-0.19) Sodium Level 139 mmol/L (136-145) Potassium Level 3.9 mmol/L (3.5-5.1) Chloride Level 103 mmol/L (101-111) Carbon Dioxide Level 27 mmol/L (21-32) Blood Urea Nitrogen 17 mg/dL (7-18) Creatinine 0.6 mg/dL (0.5-1.0) Glomerular Filtration Rate Calc 110 mL/min (>90) Random Glucose 140 mg/dL (70-105) H Total Calcium 8.2 mg/dL (8.5-10.1) L Magnesium Level 1.70 mg/dL (1.80-2.40) L Total Creatine Kinase 38 U/L (21-232) Influenza Type A Antigen Negative For Type A Influenza Type B Antigen Negative For Type B SARS-CoV-2 Antigen (Rapid) PRESUMPTIVE NEGATIVE Group A Streptococcus Rapid negative (NEGATIVE) Labs Reviewed?: Yes ED Course ED Course Orders Procedure Category Date Status Time Covid19 (Sars Antigen LAB 04/11/25 Complete Rapid) 17:31 Influenza Type A & B, LAB 04/11/25 Complete Rapid 17:31 Rapid (Group A Strep) LAB 04/11/25 Complete 17:31 Cbc With Differential LAB 04/11/25 Complete 17:31 Creatine Kinase, Total LAB 04/11/25 Complete 17:31 Basic Metabolic Panel LAB 04/11/25 Complete 17:31 Magnesium LAB 04/11/25 Complete 17:31 Acetaminophen 500mg PHA 04/11/25 Complete Tab (Tylenol 500mg T 18:00 Urinalysis Profile LAB 04/11/25 Complete 17:53 Magnesium Oxide PHA 04/11/25 Complete (Mag-Ox) 18:30 Current Medications Medications (Trade) Dose Ordered Sig/Meagan Route PRN Reason Start Time Stop Time Status Last Admin Dose Admin Acetaminophen (TYLenol 500MG TAB) 1,000 mg ONCE ONCE PO 04/11/25 18:00 04/11/25 18:01 DC Magnesium Oxide (Mag-Ox) 400 mg ONCE ONCE PO 04/11/25 18:30 04/11/25 18:31 DC Vital Signs Date Time Temp Pulse Resp B/P (MAP) Pulse Ox O2 Delivery O2 Flow Rate FiO2 04/11/25 17:19 97.9 82 18 151/85 100 Room Air Medical Decision Making MDM The patient is a 49-year-old female with history of hypothyroidism, diabetes who presents to the emergency department with generalized body aches onset five days ago. Patient otherwise denies any fevers, denies any cough, denies sore throat or ear pain, denies any abdominal pain or chest pain, denies any nausea or vomiting but reports yesterday she had an episode of nonbloody diarrhea. Patien t denies any other complaints. CBC showed no leukocytosis, no anemia,chemistry showed mild hypomagnesemia, hypo calcemia, normal renal function, urinalysis negative for leukocyte esterase, nitrites, serology negative. On physical exam patient is in no acute distress, nontoxic appearance, stable vital signs. Patient will be discharged to follow up with PCP. Differential diagnosis:, dehydration, rhabdomyolysis, UTI, viral illness Need for hospitalization: Patient does not meet criteria for hospitalization. There are no social concerns with this patient. DX & DISP Disposition: Discharge Departure Impression: Primary Impression: Viral illness Additional Impressions: Body aches, Hypomagnesemia Condition: Stable Additional Instructions: Your labs were unremarkable. Please follow up with the primary doctor in 1-2 days. If anything worsens please return to ER. FOLLOW-UP WITH PRIMARY CARE PROVIDER IN 1 TO 2 DAYS. TAKE MEDICATIONS DIRECTED HERE IN THE EMERGENCY ROOM. OKAY TO CONTINUE HOME MEDICATIONS UNLESS OTHERWISE DISCUSSED DURING YOUR VISIT IN THE EMERGENCY ROOM TODAY. RETURN TO YOUR NEAREST EMERGENCY ROOM IF SYMPTOMS WORSEN OR IF THERE IS NO IMPROVEMENT. CALL 911 IF YOU NEED IMMEDIATE ASSISTANCE. TAKE TYLENOL [id number] NEEDED AND IF NO CONTRAINDICATIONS ARE PRESENT. INCREASE ORAL HYDRATION. A WOUND CULTURE OR URINE CULTURE WAS ORDERED HERE IN THE EMERGENCY ROOM DEPARTMENT PLEASE FOLLOW-UP WITH PRIMARY CARE PROVIDER AND ADVISE THEM TO GET REPEAT PORTS FROM OUR FACILITY. IF YOU HAD ANY DAMON WRAP/SPLINTS THAT WERE APPLIED HERE, PLEASE DO NOT REMOVE THEM UNTIL YOU SEE YOUR PRIMARY CARE OR SPECIALTY. Referrals: TERENCE LOZOYA MD (PCP) Time of Disposition: 19:12 I have reviewed the case, and I agree with, Diagnosis and Plan DESI BOWERS [facility] Apr 11, 2025 19:13
[2025-04-11 19:19] VITALS: BP 156/82; PULSE 80; RESP 16; TEMP 98.1; O2SAT 98
== END 2025-04-11 19:25 | disposition home or self-care (01) ==
LOC: EDH 17:17
DX: B34.9 Viral infection, unspecified (principal); M79.10 Myalgia, unspecified site; E83.42 Hypomagnesemia; E03.9 Hypothyroidism, unspecified; E11.9 Type 2 diabetes mellitus without complications; Z79.84 Long term (current) use of oral hypoglycemic drugs; Z79.899 Other long term (current) drug therapy; Z20.822 Contact with and (suspected) exposure to COVID-19
CPT/HCPCS: 36415; 80048; 81001; 82550; 83735; 85025; 87426; 87804; 87880; 99283